=== PATIENT | female | born 1980 ===

== ENCOUNTER 2017-09-02 12:48 | Emergency (ER) | payer SELFPAY ==
--- NOTE | 2017-09-06 13:14 | EKG ---
Test Reason : Blood Pressure : / mmHG Vent. Rate : 113 BPM Atrial Rate : 113 BPM P-R Int : 138 ms QRS Dur : 072 ms QT Int : 308 ms P-R-T Axes : 045 035 -01 degrees QTc Int : 422 ms Sinus tachycardia Otherwise normal ECG Confirmed by DONAVAN VELAZQUEZ, TONI ([id number]), industrial editor KAVITA ODONNELL ([id number]) on 09/06/2017 1:14:10 PM Referred By: Confirmed By:TONI GO MD
== END 2017-09-02 17:48 | disposition home or self-care (01) ==
LOC: ERS 12:48
DX: F41.9 Anxiety disorder, unspecified (principal); F17.210 Nicotine dependence, cigarettes, uncomplicated; F32.9 Major depressive disorder, single episode, unspecified; I10 Essential (primary) hypertension; Z79.899 Other long term (current) drug therapy
CPT/HCPCS: 93005; 99406